=== PATIENT | female | born 1960 | race Asian ===

== ENCOUNTER → 2018-09-13 | Outpatient (CLI) | payer OTHER ==
[2018-09-13 16:11] LABS: Basophils # (auto) 0 uL; Basophils % (auto) 0.8 % (0.0-2.0); Eosinophils # (auto) 0 uL; Eosinophils % (auto) 1.1 % (0.0-7.0); Hematocrit 43.8 % (36.0-46.0); Hemoglobin 14.9 g/dL (12.2-16.2); Lymphocytes # (auto) 1.6 uL; Lymphocytes % (auto) 36.5 % (10.0-50.0); Mean Corpuscular Hemoglobin 31.2 pg (28.0-32.0); Mean Corpuscular Volume 91.6 fL (80.0-100.0); Monocytes # (auto) 0.3 uL; Monocytes % (auto) 6.3 % (0.0-12.0); Neutrophils # (auto) 2.3 uL; Neutrophils % (auto) 55.3 % (37.0-80.0); Platelet Count (auto) 218 10^3/uL (140-450); Red Blood Cells 4.78 10^6/uL (4.0-5.20); Red Cell Distribution Width 13.3 % (11.8-14.3); White Blood Cell 4.3 10^3/uL (4.4-10.8)
[2018-09-13 16:21] LABS: Albumin 4.5 g/dL (3.4-5.0); BUN/Creatinine Ratio 20.3; Calcium 9.6 mg/dL (8.5-10.1); Potassium 4.1 mmol/L (3.5-5.1)
[2018-09-13 16:24] LABS: Bilirubin, Total 1.2 mg/dL (0.2-1.0); Total Protein 8.9 g/dL (6.4-8.2)
== END | disposition home or self-care (01) ==
LOC: LAB 15:33
PROVIDERS: ATTEND Internal Medicine
DX: Z12.11 Encounter for screening for malignant neoplasm of colon (principal); I10 Essential (primary) hypertension; E78.5 Hyperlipidemia, unspecified
CPT/HCPCS: 36415; 80053; 80061; 82306; 84443; 85025

== ENCOUNTER 2019-03-07 11:13 | Day surgery (SDC) | payer OTHER ==
[2019-03-03 10:01] LABS: Basophils # (auto) 0 uL; Basophils % (auto) 0.6 % (0.0-2.0); Eosinophils # (auto) 0.1 uL; Eosinophils % (auto) 1.3 % (0.0-7.0); Hematocrit 42.6 % (36.0-46.0); Hemoglobin 14.3 g/dL (12.2-16.2); Lymphocytes # (auto) 1.5 uL; Mean Corpuscular Hemoglobin 30.7 pg (28.0-32.0); Mean Corpuscular Hgb Conc. 33.6 g/dL (32.0-36.0); Mean Corpuscular Volume 91.5 fL (80.0-100.0); Monocytes # (auto) 0.3 uL; Monocytes % (auto) 5.7 % (0.0-12.0); Neutrophils # (auto) 3.6 uL; Neutrophils % (auto) 65.4 % (37.0-80.0); Nucleated Red Blood Cells % 0.1 %; Platelet Count (auto) 217 10^3/uL (140-450); Red Blood Cells 4.66 10^6/uL (4.0-5.20); Red Cell Distribution Width 13.2 % (11.8-14.3); White Blood Cell 5.5 10^3/uL (4.4-10.8)
[2019-03-03 10:17] LABS: INR 0.94 (0.9-1.15); Partial Thromboplastin Time 29.7 sec (23.64-32.05)
[~2019-03-07] VITALS: Ht 154.9 cm; Wt 52.2 kg
[~2019-03-07 11:13] MED LIST: ATEN-60 PO; ATOR20TA50 PO
[2019-03-07] MEDS ORDERED: SODIUM CHLORIDE LOCK 10 ML ONE (11:29)
[2019-03-07] MEDS ORDERED: LIDOCAINE VISCOUS 2% 15ML UD ONE (11:29)
[2019-03-07] MEDS ORDERED: diphenhdrAMINE HCL 50 MG/1 ML VL ONE (11:30)
[2019-03-07] MEDS: fentaNYL CITRATE 100 MCG/2 ML VL ONE ×2 (12:00→12:14)
[2019-03-07] MEDS: MIDAZOLAM HCL 5 MG/ML-1ML VIAL ONE ×2 (12:00→12:14)
[2019-03-07 12:50] VITALS: BP 125/79
== END 2019-03-07 13:01 | disposition home or self-care (01) ==
LOC: SUR 11:13
PROVIDERS: ATTEND Internal Medicine Gastroenterology
DX: D12.2 Benign neoplasm of ascending colon (principal); K29.50 Unspecified chronic gastritis without bleeding; K57.30 Diverticulosis of large intestine without perforation or abscess without bleeding; K64.8 Other hemorrhoids; R73.03 Prediabetes; Z98.890 Other specified postprocedural states; K21.9 Gastro-esophageal reflux disease without esophagitis; Z79.899 Other long term (current) drug therapy; Z98.891 History of uterine scar from previous surgery; Z90.722 Acquired absence of ovaries, bilateral
CPT/HCPCS: 36415; 43239; 45380; 85025; 85610; 85730; 88305; 88342; J1200; J2250; J3010; J7030; 99152; 99153

== ENCOUNTER 2024-11-12 22:32 | Emergency (ER) | payer OTHER ==
[~2024-11-12] VITALS: Ht 154.9 cm; Wt 55.0 kg
[2024-11-12 22:32] VITALS: BP 146/85; RESP 18; TEMP 98.5; O2SAT 96
[2024-11-12 22:56] LABS: Hematocrit 42.1 % (36.0-46.0); Hemoglobin 14.0 g/dL (12.2-16.2); Mean Corpuscular Hemoglobin 30.5 pg (28.0-32.0); Mean Corpuscular Volume 91.7 fL (80.0-100.0); Nucleated Red Blood Cells % 0.0 %
--- NOTE | 2024-11-12 23:16 | ED.PDOC ---
History of Present Illness HPI Comments 64 y/o English-speaking F presents for multiple chronic complaints, including right chest wall pain, that radiates to her back, directly, fatigue, shortness of breath, unintended weight loss. Symptoms have been ongoing for the past several months, with patient endorsement on them worsening over the past few w eeks. States on being worked-up via outpatient, including receiving a EGD, CT scan, and blood work, with all being being with exception of a positive TB test, recently, in the month of October 2024. Patient denies any nausea, vomiting, fever, chills, or further associated symptoms. Chief Complaint: Chest Pain Time Seen by MD: 22:50 Reviewed Notes: Nurses Notes, Medications, Allergies Allergies: Coded Allergies: NO KNOWN ALLERGIES (Unverified , 03/03/19) Home Meds Reported Medications Atorvastatin Calcium (ATORVASTATIN CALCIUM) 20 Mg Tab, 1 TAB PO DAILY, #30 TAB 5 Refills 03/03/19 Atenolol (Atenolol) 25 Mg Tab, 25 MG PO DAILY@1400 for 30 Days, MG 03/03/19 Information Source: Patient Mode of Arrival: Ambulatory Severity: Moderate Timing: Months Duration: Since onset Prehospital treatment: None Past Medical History PAST MEDICAL HISTORY: High Lipids, HTN Surgical History: (2x), Hysterectomy [employer]PER[employer]OR History: Denies all [employer]PER[employer]OR Hx Family History Family History: Unknown Social History Smoker: Non-Smoker Alcohol: Denies ETOH Use Drugs: Denies Drug Use Lives In: Home All Other Systems: Reviewed and Negative (Comprehensive systems review obtained and negative except for what is stated in the HPI.) Physical Exam General Appearance: Mild Distress, Normal HEENT: Normal ENT Inspection, Pharynx Normal, TMs Normal Neck: Full Range of Motion, Non-Tender, Normal, Normal Inspection Respiratory: Chest Non-Tender, Lungs Clear, No Accessory Muscle Use, No Respiratory Distress, Normal Breath Sounds Cardiovascular: No Edema, No JVD, No Murmur, No Gallop, Normal Peripheral Pulses, Regular Rate/Rhythm Breast Exam: Deferred Gastrointestinal: No Organomegaly, Non Tender, No Pulsatile Mass, Normal Bowel Sounds, Soft Genitalia: Deferred Pelvic: Deferred Rectal: Deferred Extremities: No calf tenderness, Normal capillary refill, Normal inspection, Normal range of motion, Non-tender, No pedal edema Musculoskeletal : Apperance: Normal Neurologic: Alert, air twister winder II-XII nml as Tested, No Motor Deficits, Normal Affect, Normal Mood, No Sensory Deficits Cerebellar Function: Normal Reflexes: Normal Skin: Dry, Normal Color, Warm Lymphatic: No Adenopathy Was a procedure done? Was a procedure done?: No EKG EKG : Pulse Rate (adult): 66 [place]: Normal Cardiac Rhythm: NSR Block: None Hypertrophy: None ST: Normal Differential Dx Considerations may include: [place], PE, ACS, URI, PNA, viral syndrome, electrolyte imbalance, dehydration, anxiety, angina, among others X-Ray, Labs, Meds, VS Vital Signs Date Time Temp Pulse Resp B/P (MAP) Pulse Ox O2 Delivery O2 Flow Rate FiO2 11/12/24 23:33 71 11/12/24 23:15 66 11/12/24 22:40 66 11/12/24 22:32 98.5 70 18 146/85 (105) 96 98.5 Lab Test 11/12/24 23:50 11/12/24 22:44 Range/Units Troponin I High Sensitivity < 3 L < 3 L </=34 ng/L White Blood Count 6.2 4.4-10.8 10^3/uL Red Blood Count 4.59 4.0-5.20 10^6/uL Hemoglobin 14.0 12.2-16.2 g/dL Hematocrit 42.1 36.0-46.0 % Mean Corpuscular Volume 91.7 80.0-100.0 fL Mean Corpuscular Hemoglobin 30.5 28.0-32.0 pg Mean Corpuscular Hemoglobin Concent 33.2 32.0-36.0 g/dL Red Cell Distribution Width 14.1 11.8-14.3 % Platelet Count 234 140-450 10^3/uL Mean Platelet Volume 8.4 6.9-10.8 fL Neutrophils (%) (Auto) 56.1 37.0-80.0 % Lymphocytes (%) (Auto) 34.4 10.0-50.0 % Monocytes (%) (Auto) 7.0 0.0-12.0 % Eosinophils (%) (Auto) 1.6 0.0-7.0 % Basophils (%) (Auto) 0.9 0.0-2.0 % Neutrophils # (Auto) 3.5 1.6-8.6 10 ^3/uL Lymphocytes # (Auto) 2.1 0.4-5.4 10 ^3/uL Monocytes # (Auto) 0.4 0-1.3 10 ^3/uL Eosinophils # (Auto) 0.1 0-0.8 10 ^3/uL Basophils # (Auto) 0.1 0-0.2 10 ^3/uL Nucleated Red Blood Cells 0.0 % D-Dimer, Quantitative < 0.19 0.0-0.49 mg/L FEU Sodium Level 141 136-145 mmol/L Potassium Level 4.3 3.5-5.1 mmol/L Chloride Level 103 98-107 mmol/L Carbon Dioxide Level 28 20-31 mmol/L Anion Gap 10 5-15 Blood Urea Nitrogen 16 9-23 mg/dL Creatinine 0.71 0.550-1.02 mg/dL Glomerular Filtration Rate Calc 94 >90 mL/min BUN/Creatinine Ratio 22.5 H 10.0-20.0 Serum Glucose 111 H 74-106 mg/dL Calcium Level 10.8 H 8.7-10.4 mg/dL Total Bilirubin 0.5 0.2-1.0 mg/dL Aspartate Amino Transferase (AST) 22 13-40 U/L Alanine Aminotransferase (ALT) 24 7-40 U/L Alkaline Phosphatase 85 46-116 U/L B-Type Natriuretic Peptide 43.15 0-100 pg/mL Total Protein 7.7 5.7-8.2 g/dL Albumin 4.9 H 3.2-4.8 g/dL [place] [id number] Ph: [phone] DIAGNOSTIC IMAGING Diagnostic Imaging Report : [id number] Signed PATIENT: DELGADO ONEIL ACCT: [id number] UNIT: [id number] : 1960 LOC: ER ROOM / BED: / AGE / SEX: 64 / F ADM STATUS: REG ER SERVICE 46 ORDERING PHYSICIAN: KELLIE WADDELL MD PROCEDURE(s): CXRP - CHEST PORTABLE REASON: chest pain ORDER NUMBER(s): [id number], ACCESSION NUMBER(s): [id number] CHEST RADIOGRAPH Indication: chest pain Technique: Single frontal view of the chest was obtained COMPARISON: None FINDINGS: Lines and Tubes: None Lungs: Clear Pleura: No effusion. No pneumothorax. Cardiomediastinal contours: Unremarkable Bones: Unremarkable IMPRESSION: 1. No acute disease. ATED BY: RALF GALVAN MD DICTATED DATE/TIME: 11/12/242337 SIGNED BY: RALF GALVAN MD SIGNED DATE/TIME: 11/12/242337 CC: Time of 1ST Reevaluation: 23:20 Reevaluation 1ST: Unchanged Patient Education/Counseling: Diagnosis, Treatment, Need For Follow Up Family Education/Counseling: No Family Present SEPSIS Sepsis Screen Physician Orders Electrocardigram (11/12/24 22:35) Electrocardigram (11/12/24 23:35) Electrocardigram (11/13/24 01:35) Chest Portable (11/12/24 22:47) Vital Signs Date Time Temp Pulse Resp B/P (MAP) Pulse Ox O2 Delivery O2 Flow Rate FiO2 11/12/24 23:33 71 11/12/24 23:15 66 11/12/24 22:40 66 11/12/24 22:32 98.5 70 18 146/85 (105) 96 98.5 Laboratory Tests Test 11/12/24 22:44 White Blood Count 6.2 10^3/uL (4.4-10.8) Departure 1 Departure Time of Disposition: 01:00 Impression: Primary Impression: Atypical chest pain Additional Impression: Fatigue Disposition: HOME / SELF CARE / HOMELESS Condition: Stable Discharged With: Self Critical Care Note Critical Care Time?: No Stability Stability form required: No Heart Score Heart Score: Heart Score Response (Comments) Value History Slightly Suspicious 0 EKG Normal 0 Age >65 2 Risk Factors No known risk factors 0 Troponin Normal limit 0 Total 2 I personally scribed for KELLIE WADDELL MD ([email or web address]) on 11/12/24 at 23:15. Electronically submitted by Amos Stiles ([email or web address]). I personally scribed for KELLIE WADDELL MD ([email or web address]) on 11/12/24 at 23:53. Electronically submitted by Amos Stiles ([email or web address]). KELLIE WADDELL MD Nov 12, 2024 23:15
[2024-11-12 23:26] LABS: Alanine Aminotransferase 24 U/L (7-40); Albumin 4.9 g/dL (3.2-4.8); Alkaline Phosphatase 85 U/L (46-116); Anion Gap 10 (5-15); BUN/Creatinine Ratio 22.5 (10.0-20.0); Blood Urea Nitrogen 16 mg/dL (9-23); Calcium 10.8 mg/dL (8.7-10.4); Carbon Dioxide 28 mmol/L (20-31); Chloride 103 mmol/L (98-107); Glucose 111 mg/dL (74-106); Potassium 4.3 mmol/L (3.5-5.1); Sodium 141 mmol/L (136-145); Total Protein 7.7 g/dL (5.7-8.2)
[2024-11-12 23:27] LABS: Bilirubin, Total 0.5 mg/dL (0.2-1.0)
[2024-11-12 23:33] VITALS: PULSE 71
--- NOTE | 2024-11-12 23:41 | DVH ---
CHEST RADIOGRAPH Indication: chest pain Technique: Single frontal view of the chest was obtained COMPARISON: None FINDINGS: Lines and Tubes: None Lungs: Clear Pleura: No effusion. No pneumothorax. Cardiomediastinal contours: Unremarkable Bones: Unremarkable IMPRESSION: 1. No acute disease.
--- NOTE | 2024-11-13 07:37 | ECG ---
[facility] Test Date: 2024-11-12 Test Time: 23:33:59 Pat Name: DELGADO ONEIL Department: ED Room: Gender: F Kier Tender: dickson : 1960 Requested By: EMERGENCY EMERGENCY Order Number: [id number] Reading MD: José Saenz Measurements Intervals [place] Rate: 71 P: 68 ME: 197 QRS: 9 QRSD: 76 T: 66 QT: 394 QTc: 429 Interpretive Statements Sinus rhythm Probable left atrial enlargement Low voltage, precordial leads Electronically Signed On 11-15-2024 17:49:20 PDT by José Saenz Please click the below link to view image of tracing.
--- NOTE | 2024-11-16 06:28 | ECG ---
[facility] Test Date: 2024-11-12 Test Time: 22:40:24 Pat Name: DELGADO ONEIL Department: [facility] ED Patient ID: [id number] Room: Gender: F Shipper/Receiver: TESSY : 1960 Requested By: EMERGENCY EMERGENCY Order Number: [id number] Reading MD: José Saenz Measurements Intervals [place] Rate: 66 P: 49 PA: 206 QRS: -9 QRSD: 80 T: 38 QT: 394 QTc: 413 Interpretive Statements Sinus rhythm Electronically Signed On 11-16-2024 11:18:08 PDT by José Saenz Please click the below link to view image of tracing.
== END 2024-11-13 03:26 | disposition home or self-care (01) ==
LOC: ER 22:32
DX: R07.89 Other chest pain (principal); R53.83 Other fatigue; I10 Essential (primary) hypertension; E78.5 Hyperlipidemia, unspecified; Z98.890 Other specified postprocedural states; Z79.899 Other long term (current) drug therapy; Z90.710 Acquired absence of both cervix and uterus
CPT/HCPCS: 36415; 71045; 80053; 83880; 84484; 85025; 85379; 93005